=== PATIENT | female | born 1965 | race American Indian/Alaskan Native ===

== ENCOUNTER 2022-03-20 21:15 | Inpatient (IN) | payer SELFPAY ==
[2022-03-20] MEDS ORDERED: PANTOPRAZOLE 40 MG INJ IV ONE (22:50)
--- NOTE | 2022-03-20 22:58 | Emergency Department Report ---
HPI - General Chief Complaint: Nausea/Vomiting/Diarrhea Time Seen by Provider: 03/20/22 22:38 - HPI HPI: Room 19 The patient is a 57-year-old female present with chief complaint of GI bleed. Patient states her symptoms began this afternoon at 1400 with melena. Patient states several hours later she developed coffee-ground emesis and intermittent periumbilical abdominal pain. The patient states she had a similar presentation in November and underwent an EGD that showed a nonbleeding peptic ulcer ED Past Medical Hx - Past Medical History Hx Hypertension: Yes Hx Renal Disease: Yes (Chronic renal insufficiency) - Surgical History Additional Surgical History: Hysterectomy - Family History Family history: no significant - Social History Smoking Status: Former Smoker (None x5 years) Substance Use Type: None (Denies illicit drug use) ED Review of Systems ROS: Stated complaint: VOMITING BLOOD/HIGH BP Other details as noted in HPI Constitutional: no symptoms reported Eyes: denies: eye pain ENT: denies: throat pain Respiratory: no symptoms reported Cardiovascular: denies: chest pain Endocrine: no symptoms reported Gastrointestinal: abdominal pain, hematemesis, melena Genitourinary: denies: dysuria Musculoskeletal: denies: back pain Neurological: denies: headache Physical Exam - Physical Exam Vital Signs: Vital Signs 03/20/22 21:20 Temperature 98.8 F Pulse Rate 103 H Respiratory 16 Rate Blood Pressure 242/106 [Right] O2 Sat by Pulse 96 Oximetry Physical Exam: GENERAL: The patient is well-developed well-nourished []. [] HEENT: Normocephalic. Atraumatic. Extraocular motions are intact. Patient has moist mucous membranes. NECK: Supple. No meningitic signs are noted. There is no adenopathy noted. CHEST/LUNGS: Clear to auscultation. There is no respiratory distress noted. HEART/CARDIOVASCULAR: Regular. There is no tachycardia. There is no gallop rub or murmur. ABDOMEN: Abdomen is soft, nontender. Patient has normal bowel sounds. There is no abdominal distention. SKIN: There is no rash. There is no edema. There is no diaphoresis. NEURO: The patient is awake, alert, and oriented. The patient is cooperative. The patient has no focal neurologic deficits. The patient has normal speech. GCS 15 MUSCULOSKELETAL: There is no evidence of acute injury. RECTAL: Dark brown stool, guaiac positive ED Course Vital Signs 03/20/22 21:20 Temperature 98.8 F Pulse Rate 103 H Respiratory 16 Rate Blood Pressure 242/106 [Right] O2 Sat by Pulse 96 Oximetry - Consultations Consultation #1: 03/21/22 00:17 GI paged 03/21/22 00:[address] Gilbert-we will scope later today. Keep patient n.p.o. ED Medical Decision Making - Lab Data Result diagrams: 03/20/22 22:58 03/20/22 22:58 Laboratory Tests 03/20/22 03/20/22 03/20/22 22:58 22:58 22:58 WBC 8.8 RBC 3.57 L Hgb 7.8 L Hct 24.8 L MCV 70 L MCH 22 L MCHC 31 RDW 20.0 H Plt Count 241 Add Manual Diff Complete Total Counted 100 Seg Neuts % (Manual) 88.0 H Band Neutrophils % 0 Lymphocytes % (Manual) 7.0 L Reactive Lymphs % (Man) 0 Monocytes % (Manual) 5.0 Eosinophils % (Manual) 0 Basophils % (Manual) 0 Metamyelocytes % 0 Myelocytes % 0 Promyelocytes % 0 Blast Cells % 0 Nucleated RBC % Not Reportable Seg Neutrophils # Man 7.7 Band Neutrophils # 0.0 Lymphocytes # (Manual) 0.6 L Abs React Lymphs (Man) 0.0 Monocytes # (Manual) 0.4 Eosinophils # (Manual) 0.0 Basophils # (Manual) 0.0 Metamyelocytes # 0.0 Myelocytes # 0.0 Promyelocytes # 0.0 Blast Cells # 0.0 WBC Morphology Not Reportable Hypersegmented Neuts Not Reportable Hyposegmented Neuts Not Reportable Hypogranular Neuts Not Reportable Smudge Cells Not Reportable Toxic Granulation Not Reportable Toxic Vacuolation Not Reportable Dohle Bodies Not Reportable Pelger-Huet Anomaly Not Reportable Annette Rods Not Reportable Platelet Estimate Consistent w auto Clumped Platelets Not Reportable Plt Clumps, EDTA Not Reportable Large Platelets Not Reportable Giant Platelets Not Reportable Platelet Satelliting Not Reportable Plt Morphology Comment Not Reportable RBC Morphology Not Reportable Dimorphic RBCs Not Reportable Polychromasia Not Reportable Hypochromasia 2+ Poikilocytosis 1+ Anisocytosis 2+ Microcytosis 1+ Macrocytosis Not Reportable Spherocytes Not Reportable Pappenheimer Bodies Not Reportable Sickle Cells Not Reportable Target Cells Not Reportable Tear Drop Cells Not Reportable Ovalocytes Few Helmet Cells Not Reportable Sunshine-[place] Bodies Not Reportable [place] Rings Not Reportable [place] Cells Not Reportable Bite Cells Not Reportable Crenated Cell Not Reportable Elliptocytes Few Acanthocytes (Spur) Few Rouleaux Not Reportable Hemoglobin C Crystals Not Reportable Schistocytes Not Reportable Malaria parasites Not Reportable Fredo Bodies Not Reportable Hem Pathologist Commnt No PT 14.2 INR 0.97 APTT 24.3 Sodium 141 Potassium 3.8 Chloride 98.0 Carbon Dioxide 26 Anion Gap 21 BUN 64 H Creatinine 2.7 H Estimated GFR 18 BUN/Creatinine Ratio 24 Glucose 131 H Calcium 8.9 Total Bilirubin 0.40 AST 14 ALT 8 Alkaline Phosphatase 100 Total Protein 6.4 Albumin 3.9 Albumin/Globulin Ratio 1.6 Blood Type Antibody Screen 03/20/22 22:58 WBC RBC Hgb Hct MCV MCH MCHC RDW Plt Count Add Manual Diff Total Counted Seg Neuts % (Manual) Band Neutrophils % Lymphocytes % (Manual) Reactive Lymphs % (Man) Monocytes % (Manual) Eosinophils % (Manual) Basophils % (Manual) Metamyelocytes % Myelocytes % Promyelocytes % Blast Cells % Nucleated RBC % Seg Neutrophils # Man Band Neutrophils # Lymphocytes # (Manual) Abs React Lymphs (Man) Monocytes # (Manual) Eosinophils # (Manual) Basophils # (Manual) Metamyelocytes # Myelocytes # Promyelocytes # Blast Cells # WBC Morphology Hypersegmented Neuts Hyposegmented Neuts Hypogranular Neuts Smudge Cells Toxic Granulation Toxic Vacuolation Dohle Bodies Pelger-Huet Anomaly Annette Rods Platelet Estimate Clumped Platelets Plt Clumps, EDTA Large Platelets Giant Platelets Platelet Satelliting Plt Morphology Comment RBC Morphology Dimorphic RBCs Polychromasia Hypochromasia Poikilocytosis Anisocytosis Microcytosis Macrocytosis Spherocytes Pappenheimer Bodies Sickle Cells Target Cells Tear Drop Cells Ovalocytes Helmet Cells Sunshine-R[place]y Bodies [place] Rings [place] Cells Bite Cells Crenated Cell Elliptocytes Acanthocytes (Spur) Rouleaux Hemoglobin C Crystals Schistocytes Malaria parasites Fredo Bodies Hem Pathologist Commnt PT INR APTT Sodium Potassium Chloride Carbon Dioxide Anion Gap BUN Creatinine Estimated GFR BUN/Creatinine Ratio Glucose Calcium Total Bilirubin AST ALT Alkaline Phosphatase Total Protein Albumin Albumin/Globulin Ratio Blood Type O POSITIVE Antibody Screen Negative - Differential Diagnosis GI bleed Critical care attestation.: If time is entered above; I have spent that time in minutes in the direct care of this critically ill patient, excluding procedure time. ED Disposition Clinical Impression: GI bleed Disposition: ADMITTED INPATIENT Is pt being admited?: Yes Does the pt Need Aspirin: No Condition: Fair Time of Disposition: 00:35 (Care transferred to hospitalist (Dr. Gilbert))
[2022-03-20] MEDS ORDERED: SODIUM CHLORIDE 0.9% 1000 ML 1,000 ML IV ONE (23:00)
[2022-03-20] MEDS ORDERED: cloNIDine 0.2 MG TAB PO ONE (23:00)
[2022-03-20 23:19] LABS: Hematocrit 24.8 % (30.3-42.9); Hemoglobin 7.8 gm/dl (10.1-14.3); Mean Corpuscular HGB Conc 31 % (30-34); Platelet Count 241 K/mm3 (140-440); Red Blood Count 3.57 M/mm3 (3.65-5.03)
[2022-03-20 23:20] LABS: Mean Corpuscular Volume 70 fl (79-97)
[2022-03-20 23:28] LABS: INR 0.97 (0.87-1.13); Partial Thromboplastin Time 24.3 Sec. (24.2-36.6)
[2022-03-20 23:39] LABS: Albumin 3.9 g/dL (3.9-5); Calcium 8.9 mg/dL (8.4-10.2)
[2022-03-21 00:16] LABS: Anisocytosis 2+; Basophils % (Manual) 0 % (0.0-1.8); Eosinophils % (Manual) 0 % (0.0-4.3); Hypochromasia 2+; Total Cells Counted 100
[2022-03-21 00:17] LABS: Ovalocytes Few; Platelet Estimate Consistent w Auto; Poikilocytosis 1+
[2022-03-21] MEDS ORDERED: MORPHINE 4 MG/1 ML INJ IV PRN (02:46)
[2022-03-21] MEDS ORDERED: ALBUTEROL 2.5 MG/3 ML NEBU IH PRN (02:46)
[2022-03-21] MEDS ORDERED: MORPHINE 2 MG/1 ML INJ IV PRN (02:46)
[2022-03-21] MEDS ORDERED: ACETAMINOPHEN 325 MG TAB PO PRN (02:46)
[2022-03-21] MEDS ORDERED: ONDANSETRON 4 MG/2 ML INJ IV PRN (02:46)
--- NOTE | 2022-03-21 02:52 | History and Physical Report ---
History of Present Illness Date of examination: 03/21/22 Date of admission: 03/21/22 Chief complaint: Melena Coffee-ground emesis History of present illness: 57-year-old female present with history of hypertension and renal disease was brought to the hospital because of chief complaint of GI bleed. Patient states her symptoms began this afternoon at 1400 with melena. Patient states several hours later she developed coffee-ground emesis and intermittent periumbilical abdominal pain. The patient states she had a similar presentation in November and underwent an EGD that showed a nonbleeding peptic ulcer In the emergency room patient is found to have hemoglobin of 7.8 and hematocrit 24.8. Subsequently Case was discussed with on-call GI Dr. Will see the patient in consultation and for possible EGD in the morning Past History Past Medical History: hypertension, renal failure Past Surgical History: hysterectomy Social history: other (Former smoker) Family history: hypertension Medications and Allergies Allergies Allergy/AdvReac Type Severity Reaction Status Date / Time No Known Allergies Allergy Unverified 03/20/22 22:48 Review of Systems All systems: negative Gastrointestinal: abdominal pain, nausea, vomiting, hematemesis, melena Exam - Constitutional Vitals: Temp Pulse Resp BP Pulse Ox 98.8 F 103 H 16 169/141 98 03/20/22 21:20 03/21/22 01:10 03/20/22 21:20 03/21/22 01:15 03/21/22 01:15 General appearance: Present: no acute distress, well-nourished - EENT Eyes: Present: PERRL ENT: hearing intact, clear oral mucosa - Neck Neck: Present: supple, normal ROM - Respiratory Respiratory effort: normal Respiratory: bilateral: CTA - Cardiovascular Heart Sounds: Present: S1 & S2. Absent: rub, click - Extremities Extremities: pulses symmetrical, No edema Peripheral Pulses: within normal limits - Abdominal General gastrointestinal: Present: soft, non-tender, non-distended, normal bowel sounds Female genitourinary: Present: normal - Integumentary Integumentary: Present: clear, warm, dry - Musculoskeletal Musculoskeletal: gait normal, strength equal bilaterally - Psychiatric Psychiatric: appropriate mood/affect, intact judgment & insight - Neurologic Neurologic: CNII-XII intact, moves all extremities Results - Labs CBC & Chem 7: 03/20/22 22:58 03/20/22 22:58 Labs: Laboratory Last Values WBC 8.8 K/mm3 (4.5-11.0) 03/20/22 22:58 RBC 3.57 M/mm3 (3.65-5.03) L 03/20/22 22:58 Hgb 7.8 gm/dl (10.1-14.3) L 03/20/22 22:58 Hct 24.8 % (30.3-42.9) L 03/20/22 22:58 MCV 70 fl (79-97) L 03/20/22 22:58 MCH 22 pg (28-32) L 03/20/22 22:58 MCHC 31 % (30-34) 03/20/22 22:58 RDW 20.0 % (13.2-15.2) H 03/20/22 22:58 Plt Count 241 K/mm3 (140-440) 03/20/22 22:58 Add Manual Diff Complete 03/20/22 22:58 Total Counted 100 03/20/22 22:58 Seg Neuts % (Manual) 88.0 % (40.0-70.0) H 03/20/22 22:58 Band Neutrophils % 0 % 03/20/22 22:58 Lymphocytes % (Manual) 7.0 % (13.4-35.0) L 03/20/22 22:58 Reactive Lymphs % (Man) 0 % 03/20/22 22:58 Monocytes % (Manual) 5.0 % (0.0-7.3) 03/20/22 22:58 Eosinophils % (Manual) 0 % (0.0-4.3) 03/20/22 22:58 Basophils % (Manual) 0 % (0.0-1.8) 03/20/22 22:58 Metamyelocytes % 0 % 03/20/22 22:58 Myelocytes % 0 % 03/20/22 22:58 Promyelocytes % 0 % 03/20/22 22:58 Blast Cells % 0 % 03/20/22 22:58 Nucleated RBC % Not Reportable 03/20/22 22:58 Seg Neutrophils # Man 7.7 K/mm3 (1.8-7.7) 03/20/22 22:58 Band Neutrophils # 0.0 K/mm3 03/20/22 22:58 Lymphocytes # (Manual) 0.6 K/mm3 (1.2-5.4) L 03/20/22 22:58 Abs React Lymphs (Man) 0.0 K/mm3 03/20/22 22:58 Monocytes # (Manual) 0.4 K/mm3 (0.0-0.8) 03/20/22 22:58 Eosinophils # (Manual) 0.0 K/mm3 (0.0-0.4) 03/20/22 22:58 Basophils # (Manual) 0.0 K/mm3 (0.0-0.1) 03/20/22 22:58 Metamyelocytes # 0.0 K/mm3 03/20/22 22:58 Myelocytes # 0.0 K/mm3 03/20/22 22:58 Promyelocytes # 0.0 K/mm3 03/20/22 22:58 Blast Cells # 0.0 K/mm3 03/20/22 22:58 WBC Morphology Not Reportable 03/20/22 22:58 Hypersegmented Neuts Not Reportable 03/20/22 22:58 Hyposegmented Neuts Not Reportable 03/20/22 22:58 Hypogranular Neuts Not Reportable 03/20/22 22:58 Smudge Cells Not Reportable 03/20/22 22:58 Toxic Granulation Not Reportable 03/20/22 22:58 Toxic Vacuolation Not Reportable 03/20/22 22:58 Dohle Bodies Not Reportable 03/20/22 22:58 Pelger-Huet Anomaly Not Reportable 03/20/22 22:58 Annette Rods Not Reportable 03/20/22 22:58 Platelet Estimate Consistent w auto 03/20/22 22:58 Clumped Platelets Not Reportable 03/20/22 22:58 Plt Clumps, EDTA Not Reportable 03/20/22 22:58 Large Platelets Not Reportable 03/20/22 22:58 Giant Platelets Not Reportable 03/20/22 22:58 Platelet Satelliting Not Reportable 03/20/22 22:58 Plt Morphology Comment Not Reportable 03/20/22 22:58 RBC Morphology Not Reportable 03/20/22 22:58 Dimorphic RBCs Not Reportable 03/20/22 22:58 Polychromasia Not Reportable 03/20/22 22:58 Hypochromasia 2+ 08/09/22 22:58 Poikilocytosis 1+ 03/20/22 22:58 Anisocytosis 2+ 03/20/22 22:58 Microcytosis 1+ 03/20/22 22:58 Macrocytosis Not Reportable 03/20/22 22:58 Spherocytes Not Reportable 03/20/22 22:58 Pappenheimer Bodies Not Reportable 03/20/22 22:58 Sickle Cells Not Reportable 03/20/22 22:58 Target Cells Not Reportable 03/20/22 22:58 Tear Drop Cells Not Reportable 03/20/22 22:58 Ovalocytes Few 03/20/22 22:58 Helmet Cells Not Reportable 03/20/22 22:58 [place] Bodies Not Reportable 03/20/22 22:58 [place] Rings Not Reportable 03/20/22 22:58 Juan Cells Not Reportable 03/20/22 22:58 Bite Cells Not Reportable 03/20/22 22:58 Crenated Cell Not Reportable 03/20/22 22:58 Elliptocytes Few 03/20/22 22:58 Acanthocytes (Spur) Few 03/20/22 22:58 Rouleaux Not Reportable 03/20/22 22:58 Hemoglobin C Crystals Not Reportable 03/20/22 22:58 Schistocytes Not Reportable 03/20/22 22:58 Malaria parasites Not Reportable 03/20/22 22:58 Fredo Bodies Not Reportable 03/20/22 22:58 Hem Pathologist Commnt No 03/20/22 22:58 PT 14.2 Sec. (12.2-14.9) 03/20/22 22:58 INR 0.97 (0.87-1.13) 03/20/22 22:58 APTT 24.3 Sec. (24.2-36.6) 03/20/22 22:58 Sodium 141 mmol/L (137-145) 03/20/22 22:58 Potassium 3.8 mmol/L (3.6-5.0) 03/20/22 22:58 Chloride 98.0 mmol/L (98-107) 03/20/22 22:58 Carbon Dioxide 26 mmol/L (22-30) 03/20/22 22:58 Anion Gap 21 mmol/L 03/20/22 22:58 BUN 64 mg/dL (7-17) H 03/20/22 22:58 Creatinine 2.7 mg/dL (0.6-1.2) H 03/20/22 22:58 Estimated GFR 18 ml/min 03/20/22 22:58 BUN/Creatinine Ratio 24 % 03/20/22 22:58 Glucose 131 mg/dL (65-100) H 03/20/22 22:58 Calcium 8.9 mg/dL (8.4-10.2) 03/20/22 22:58 Total Bilirubin 0.40 mg/dL (0.1-1.2) 03/20/22 22:58 AST 14 units/L (5-40) 03/20/22 22:58 ALT 8 units/L (7-56) 03/20/22 22:58 Alkaline Phosphatase 100 units/L (35-129) 03/20/22 22:58 Total Protein 6.4 g/dL (6.3-8.2) 03/20/22 22:58 Albumin 3.9 g/dL (3.9-5) 03/20/22 22:58 Albumin/Globulin Ratio 1.6 % 03/20/22 22:58 Blood Type O POSITIVE 03/20/22 22:58 Antibody Screen Negative 03/20/22 22:58 Microbiology: Microbiology 03/20/22 22:56 Stool Stool Occult Blood (HAILEY) - Final Assessment and Plan VTE prophylaxis?: Mechanical Plan of care discussed with patient/family: Yes - Patient Problems (1) GI bleed Status: Acute Plan to address problem: Admit the patient to the medical telemetry. NPO. D5 half-normal saline at the rate of 100 cc/h. Protonix drip 8 mg/h. We will do the serial H&H. Will consult GI for evaluation and for possible EGD in the morning (2) Hypertension Status: Acute Plan to address problem: Hydralazine 10 mg IV every 6 hours as needed. We will monitor the blood pressure closely (3) Renal failure Status: Acute Plan to address problem: Avoid nephrotoxic drug. Renally dose medication. D5 half-normal saline at the rate of 100 cc/h. Recheck BMP in the morning. If needed will consult nephrology (4) DVT prophylaxis Status: Acute Plan to address problem: SCD for DVT prophylaxis. Protonix drip 8 mg/h for GI prophylaxis. Patient is a full code
[2022-03-21] MEDS ORDERED: PANTOPRAZOLE 80 MG in SODIUM CHLORIDE 0.9% 100 ML IV SCH (03:00)
[2022-03-21] MEDS ORDERED: IPRATROPIUM/ALBUTEROL SULFATE 3 ML AMPUL.NEB IH ONE (03:56)
[2022-03-21] MEDS: D5W/0.45% NACL 1,000 ML IV SCH ×2 (06:53→16:56)
[2022-03-21] MEDS: NIFEdipine XL 60 MG TAB PO SCH ×2 (08:20→09:51)
[2022-03-21] MEDS: PANTOPRAZOLE 40 MG INJ IV SCH ×2 (09:53→21:48)
[2022-03-21] MEDS: IPRATROPIUM/ALBUTEROL SULFATE 3 ML AMPUL.NEB IH SCH ×2 (10:02→14:59)
--- NOTE | 2022-03-21 13:36 | Event Note ---
Date: 03/21/22 Patient was evaluated this morning, she was found to be hemodynamically stable. #Upper GI bleed #Hematemesis Started clear liquid diet and continuing D5 half-normal saline at 100 cc/hour. Transition to Protonix drip to IV pantoprazole 40 mg twice daily. Trending H&H's. Patient endorses having upper endoscopy in November 2021 revealing peptic ulcer disease; however, patient was not initiated on PPI after PUD was revealed. Gastroenterology consulted; pending recs Holding anticoagulation in the setting of acute GI bleed. #Hypertension - home medications: Labetalol 300 mg daily - current medications: Nifedipine 60 mg daily - SBP goal <160 and DBP goal <90 while inpatient - continue to monitor #CKD stage IV Creatinine 2.7 (baseline unknown) Renally dose meds and avoid nephrotoxic drugs. If renal function worsens, nephrology will be consulted. Continue to monitor. #Microcytic anemia Hemoglobin 7.8 Pending iron profile, ferritin, and TIBC. Likely iron deficiency anemia. Transfuse if hemoglobin <7 or patient becomes symptomatic. #Coordination of CARE time: 30 minutes. Total visit time equals 30 or more minutes with greater than 50% spent [id number] on coordination of care and counseling. #Advanced care planning -Disease education conducted, care plan discussed, diagnoses discussed, prognosis discussed, and patient acknowledges understanding with care plan -Time: +30 min
[2022-03-22 01:12] LABS: Iron 12 ug/dL (37-170); Total Iron Binding Capacity 339 mcg/dL (250-450)
[2022-03-22] MEDS: hydrALAZINE 20 MG/1 ML INJ IV PRN ×3 (01:46→15:46)
--- NOTE | 2022-03-22 05:25 | Consultation ---
DATE OF CONSULTATION: 03/21/2022 REFERRING PHYSICIAN: Maria Del Rosario Guallpa. INDICATION: 1. Melena. 2. Gastrointestinal bleed. HISTORY OF PRESENT ILLNESS: The patient is a 57-year-old black female with history of hypertension, renal disease, now being seen for GI bleed. The patient reports for the last couple of days, she has had epigastric pain with black stools and now hematemesis. The patient reports she has had this issue in the past when in November, she was diagnosed with peptic ulcer disease, but no active bleeding was noted at that time. The patient reports some mild epigastric pain. Denies any weight loss. She denies any NSAID use. The patient subsequently came to the Emergency Room, was noted to be anemic and heme-positive, subsequently admitted and GI consulted. PAST MEDICAL HISTORY: 1. Hypertension. 2. Renal failure. 3. Status post hysterectomy. MEDICATIONS: Reviewed and updated in chart. ALLERGIES: No known drug allergies. SOCIAL HISTORY: Denies alcohol, tobacco or drug abuse. FAMILY HISTORY: Negative for colon cancer, IBD or liver disease. REVIEW OF SYSTEMS: GENERAL: Reports some mild weakness. HEENT: Denies visual complaints or tinnitus. PULMONARY: Denies shortness of breath, chest pain. GASTROINTESTINAL: Reports epigastric pain, hematemesis and melena. All points of 13-point review of system otherwise negative. PHYSICAL EXAMINATION: VITAL SIGNS: Temperature 98.5, pulse 78, respirations 18, blood pressure 160/90. GENERAL: Fairly nourished, in no acute distress. HEENT: Pupils round, reactive. PULMONARY: Clear to auscultation bilaterally. CARDIOVASCULAR: Regular rate and rhythm. Normal S1, S2. ABDOMEN: Positive bowel sounds. SKIN: No obvious rashes. LABORATORY DATA: Pertinent for white count of 8.8, hemoglobin and hematocrit of 7.8 and 24.8, platelet count of 241. Chem-7 within normal limits. Coags within normal limits. ASSESSMENT: A 57-year-old female with a history of peptic ulcer disease in the past, now presents with coffee emesis as well as melena with noted anemia, probable upper gastrointestinal bleed. PLAN: 1. Follow hematocrit and transfuse as needed. 2. PPI IV drip. 3. Avoid NSAIDs and aspirin. 4. Plan EGD in a.m. TID: [id number] RECEIPT: [id number] [facility]/PAT/ISA
[2022-03-22] MEDS ORDERED: SODIUM FERRIC GLUCON/SUCRO 125 MG in SODIUM CHLORIDE 0.9% 100 ML IV ONE (09:53)
[2022-03-22] MEDS: PANTOPRAZOLE 40 MG INJ IV SCH (09:57)
[2022-03-22] MEDS: NIFEdipine XL 60 MG TAB PO SCH (10:17)
[2022-03-22] MEDS ORDERED: EPINEPHrine 1 MG/10 ML SYRINGE ONE (11:58)
[2022-03-22] MEDS ORDERED: SODIUM CHLORIDE 0.9% 1000 ML 1,000 ML ONE (11:59)
[2022-03-22] MEDS ORDERED: LIDOCAINE MPF (2%) 20 MG/1 ML VIAL 5 ML ONE (13:33)
[2022-03-22] MEDS ORDERED: propofoL 200 MG/20 ML VIAL IV ONE (13:33)
--- NOTE | 2022-03-22 14:05 | Post Operative Note ---
Pre-op diagnosis: gi bleed Post-op diagnosis: same Findings: EGD: 1 cm cratered white based ulcer antrum - moderate gastritis (bx's) - negative other Procedure: egd w/ bx Anesthesia: MAC Surgeon: EDGAR WALKER Estimated blood loss: none Pathology: list Specimen disposition: to lab Condition: stable Disposition: floor
--- NOTE | 2022-03-22 14:35 | Operative Report ---
DATE OF SURGERY: 03/22/2022 EGD INDICATIONS: 1. Anemia. 2. Gastrointestinal bleed. MEDICATIONS: Propofol per CHIEF ACCOUNTANT. COMPLICATIONS: None. DESCRIPTION OF PROCEDURE: The patient was brought to the procedure suite. The patient had the procedure discussed with her at length. All risks, complications, and benefits discussed, after which the patient signed for the procedure to be performed. The patient was placed in left lateral decubitus position. Mouth block placed in patient's oral cavity. After adequate sedation with medication as above, endoscope placed in the mouth and brought to level of second portion of duodenum. Retroflexion view performed. The patient's vital signs remained stable throughout the procedure. FINDINGS: Small hiatal hernia at gastroesophageal junction 38 cm from the gums. Esophagus otherwise appeared to be normal, 1 cm slightly cratered white based ulcer without bleeding stigmata noted in the antrum. Mild to moderate antral gastritis also noted. Biopsy taken of the antrum and sent to pathology. Remaining stomach otherwise appeared to be normal. Duodenum appeared to be normal. Retroflexion view performed in the stomach showed no other pathology other than noted above. The patient tolerated the procedure well. No complications during this procedure. IMPRESSION: 1. Hiatal hernia. 2. Otherwise, normal esophagus. 3. Ulcers in the antrum without bleeding stigmata as noted above. 4. Moderate gastritis in the antrum with biopsies performed. 5. Otherwise, normal EGD. RECOMMENDATIONS: 1. Follow up biopsy results. 2. If H. pylori positive, we will treat. 3. PPI daily. 4. Advance diet. 5. If H and H stable, okay to discharge from GI standpoint. TID: [id number] RECEIPT: [id number] [facility]
--- NOTE | 2022-03-22 14:49 | Discharge Summary ---
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 Procedures: Upper endoscopy Hospital course: Patient is a 57-year-old female past medical history of peptic ulcer disease (status post EGD November 2021), hypertension, CKD stage IV who presented to the ED with complaints of melena and coffee-ground emesis that had started hours prior to presentation. Patient also described intermittent periumbilical abdominal pain. In November 2021 she was found to have a nonbleeding peptic ulcer; however, the patient was not discharged with PPI. Patient denies administration of NSAIDs, Motrin, Aleve, ibuprofen, William, Goody powder, etc. The patient was found to be hemodynamically stable but with vitals remarkable for blood pressure of 242/106 and tachycardia of 103. Patient also had labs remarkable for hemoglobin 7.8 and creatinine 2.7. Patient was placed on clear liquid diet, and gastroenterology was consulted. Gastroenterology performed an upper endoscopy revealing a 1 cm cratered white-based ulcer in the antrum in addition to moderate gastritis. Biopsies were taken to assess for H. pylori. The patient will be discharging with Protonix 40 mg daily, and she will follow-up with gastroenterology in outpatient setting. Patient was found to have significant iron deficiency anemia with an iron level of 12. Patient underwent IV iron repletion, and she will be discharged with daily ferrous sulfate 324 mg supplementation. The patient expresses understanding. Patient is medically clear for discharge. Disposition: 01 HOME / SELF CARE / HOMELESS Final Discharge Diagnosis (Prints w/discharge instructions): Hematemesis, upper GI bleed, hypertension, CKD stage IV, iron deficiency anemia Time spent for discharge: 45 min Core Measure Documentation - Palliative Care Palliative Care/ Comfort Measures: Not Applicable - Core Measures Any of the following diagnoses?: none Exam - Constitutional Vitals: Temp Pulse Resp BP Pulse Ox 97.8 F 92 H 16 164/95 100 03/22/22 14:00 03/22/22 14:15 03/22/22 14:15 03/22/22 14:15 03/22/22 14:15 General appearance: Present: no acute distress, well-nourished - EENT Eyes: Present: PERRL, EOM intact ENT: hearing intact, clear oral mucosa, dentition normal - Neck Neck: Present: supple, normal ROM - Respiratory Respiratory effort: normal Respiratory: bilateral: CTA - Cardiovascular Rhythm: regular Heart Sounds: Present: S1 & S2 - Extremities Extremities: no ischemia, pulses intact, pulses symmetrical, No edema, normal temperature, normal color, Full ROM Peripheral Pulses: within normal limits - Abdominal General gastrointestinal: Present: soft, non-tender, non-distended, normal bowel sounds Female genitourinary: Present: deferred - Rectal Rectal Exam: deferred - Integumentary Integumentary: Present: clear, warm, dry - Musculoskeletal Musculoskeletal: strength equal bilaterally - Psychiatric Psychiatric: appropriate mood/affect, intact judgment & insight, memory intact, cooperative - Neurologic Neurologic: CNII-XII intact, moves all extremities - Allied Health Allied health notes reviewed: nursing Plan Activity: advance as tolerated Diet: low salt Additional Instructions: Patient is a 57-year-old female past medical history of peptic ulcer disease (status post EGD November 2021), hypertension, CKD stage IV who presented to the ED with complaints of melena and coffee-ground emesis that had started hours prior to presentation. Patient also described intermittent periumbilical abdominal pain. In November 2021 she was found to have a nonbleeding peptic ulcer; however, the patient was not discharged with PPI. Patient denies administration of NSAIDs, Motrin, Aleve, ibuprofen, William, Goody powder, etc. The patient was found to be hemodynamically stable but with vitals remarkable for blood pressure of 242/106 and tachycardia of 103. Patient also had labs remarkable for hemoglobin 7.8 and creatinine 2.7. Patient was placed on clear liquid diet, and gastroenterology was consulted. Gastroenterology performed an upper endoscopy revealing a 1 cm cratered white-based ulcer in the antrum in addition to moderate gastritis. Biopsies were taken to assess for H. pylori. The patient will be discharging with Protonix 40 mg daily, and she will follow- up with gastroenterology in outpatient setting. Patient was found to have significant iron deficiency anemia with an iron level of 12. Patient underwent IV iron repletion, and she will be discharged with daily ferrous sulfate 324 mg supplementation. The patient expresses understanding. Patient is medically clear for discharge. Care Plan Goals: Patient is medically cleared for discharge. Assessment: Patient is a 57-year-old female past medical history of peptic ulcer disease (status post EGD November 2021), hypertension, CKD stage IV who presented to the ED with complaints of melena and coffee-ground emesis that had started hours prior to presentation. Patient also described intermittent periumbilical abdominal pain. In November 2021 she was found to have a nonbleeding peptic ulcer; however, the patient was not discharged with PPI. Patient denies administration of NSAIDs, Motrin, Aleve, ibuprofen, William, Goody powder, etc. The patient was found to be hemodynamically stable but with vitals remarkable for blood pressure of 242/106 and tachycardia of 103. Patient also had labs remarkable for hemoglobin 7.8 and creatinine 2.7. Patient was placed on clear liquid diet, and gastroenterology was consulted. Gastroenterology performed an upper endoscopy revealing a 1 cm cratered white-based ulcer in the antrum in addition to moderate gastritis. Biopsies were taken to assess for H. pylori. The patient will be discharging with Protonix 40 mg daily, and she will follow-up with gastroenterology in outpatient setting. Patient was found to have significant iron deficiency anemia with an iron level of 12. Patient underwent IV iron repletion, and she will be discharged with daily ferrous sulfate 324 mg supplementation. The patient expresses understanding. Patient is medically clear for discharge. Follow up with: PRIMARY MD HELDER [Primary Care Provider] - 7 Days VIDHYA DIAL MD [Staff Physician] - 14 Days Prescriptions: Ferrous Sulfate [Ferrous Sulfate 324 MG] 324 mg PO DAILY #30 tab NIFEdipine XL [Procardia Xl] 60 mg PO QDAY #30 tablet Pantoprazole [Protonix TAB] 40 mg PO BID #30 tab
[2022-03-22 17:17] VITALS: BP 166/85
--- NOTE | 2022-03-22 18:57 | Post Anesthesia Evaluation ---
- Post Anesthesia Evaluation Patient Participated: Yes Airway Patent: Yes Stable Respiratory Function: Yes Nausea/Vomiting: No Temp > 96.8F: Yes Pain Manageable: Yes Adequeate Hydration: Yes Anesthesia Complications: No Block Receding Appropriately: Not Applicable Patient on Ventilator: No
== END 2022-03-22 18:41 | disposition home or self-care (01) | DRG 378 ==
LOC: ED 21:15 → 4A 03-21 02:46
PROVIDERS: ADMIT Hospitalist; ATTEND Student in an Organized Health Care Education/Training Program
PROC: 0DB68ZX Excision of Stomach, Via Natural or Artificial Opening Endoscopic, Diagnostic (ICD-10-PCS; principal; 2022-03-22)
DX: K29.71 Gastritis, unspecified, with bleeding (principal); N18.4 Chronic kidney disease, stage 4 (severe); I12.9 Hypertensive chronic kidney disease with stage 1 through stage 4 chronic kidney disease, or unspecified chronic kidney disease; D64.9 Anemia, unspecified; K46.9 Unspecified abdominal hernia without obstruction or gangrene; Z90.49 Acquired absence of other specified parts of digestive tract; Z87.891 Personal history of nicotine dependence
CPT/HCPCS: 36415; 80053; 82270; 82728; 83550; 85007; 85025; 85610; 85730; 86850; 86900; 86901; 88305; 94640; G0378; J7070; C9113; J0171; J0360; J2704; J2916; J7030